=== PATIENT | male | born 1995 | race Caucasian/White ===

== ENCOUNTER 2020-01-25 10:36 | Outpatient (CLI) | payer SELFPAY ==
--- NOTE | 2020-01-25 10:30 | CT_ITS ---
WS: [id number] CT HEAD WITH AND WITHOUT CONTRAST HISTORY: lesion of nose TECHNIQUE: Noncontrast 2.5 mm axial images obtained from the vertex to the skull base. Additional barb ging performed at 2.5 mm axial images status post IV contrast. Bone and soft tissue windows are revie wed. All CT scans at [facility] use at least one of these dose optimization techniques: a utomated exposure control; mA and/or kV adjustment per patient size (includes targeted exams where do se is matched to clinical indication); or iterative reconstruction. CONTRAST: Omnipaque 300; 95 mL IV. DLP: 2053.04 mGy.cm COMPARISON: None available. No acute intracranial hemorrhage, edema or midline shift. No enhancing mass or vascular malformations identified. Dural venous sinuses are normally enhancing. Visualized [place] is unremarkable. Paranasal sinuses as visualized: Clear. Mastoid air cells: Clear. Calvarium and scalp: Intact. Low-attenuation soft tissue mass along the LEFT nasal bone measures 9 x 10 mm. Well-circumscribed low -attenuation without destruction of the adjacent nasal bone. There is no significant enhancement. CT/CT head wo/w con [id number] IMPRESSION: 1. Negative CT brain with and without contrast. 2. Nonenhancing soft tissue nodule measuring 8 x 9 mm along the LEFT nasal bon e.
[2020-01-25] MEDS: iohexol 300 mg/mL 100 mL Btl IV (11:11)
== END 2020-01-25 10:37 | disposition home or self-care (01) ==
LOC: RAD 10:38
PROVIDERS: PCP Family Medicine; Visit Provider Surgery
DX: J34.89 Other specified disorders of nose and nasal sinuses (principal)
CPT/HCPCS: 70470